=== PATIENT | male | born 2000 | race Caucasian/White ===

== ENCOUNTER 2024-09-05 16:34 | Emergency (ER) | payer OTHER ==
[~2024-09-05] VITALS: Ht 167.6 cm; Wt 77.1 kg
[2024-09-05 16:45] VITALS: TEMP 98.1
[2024-09-05] MEDS ORDERED: BUPIVACAINE HCL 0.25% 10ML MPF VIAL INJ ONE (19:23)
[2024-09-05] MEDS: BUPIVACAINE 0.25%/EPI 30ML SDV INJ ONE (19:34)
[2024-09-05 19:45] VITALS: PULSE 68; RESP 17
[2024-09-05] MEDS ORDERED: DOXYCYCLINE HY100 MG PO (20:18)
[2024-09-05] MEDS: BACITRACIN ZINC 0.9GM TP ONE ×2 (20:35→20:36)
[2024-09-05 20:36] VITALS: BP 129/69; PULSE 73; RESP 17; TEMP 98; O2SAT 100
[2024-09-05] MEDS: TETANUS/DIPHTHERIA TOX ADULT 0.5 ML SYR IM ONE (20:36)
== END 2024-09-05 20:30 | disposition home or self-care (01) ==
LOC: ER 17:03
DX: S61.220A Laceration with foreign body of right index finger without damage to nail, initial encounter (principal); W26.8XXA Contact with other sharp object(s), not elsewhere classified, initial encounter; W45.8XXA Other foreign body or object entering through skin, initial encounter; Y99.0 Civilian activity done for income or pay
CPT/HCPCS: 99283